=== PATIENT | male | born 1960 | race Caucasian/White ===

== ENCOUNTER 2017-11-21 03:48 | Inpatient (IN) | payer MEDICARE ==
[2017-11-21] VITALS (7 sets, daily range): BP systolic 146–196; BP diastolic 76–99
[~2017-11-21] VITALS: Ht 162.6 cm; Wt 61.7 kg
[~2017-11-21 03:48] MED LIST: AMLODIPINE BESY10 MG PO; ASPIRIN325 PO; ATORVASTATIN CA80 MG PO; LOPRESSOR100 M1 PO; PRILOSEC 20 MG20 MG PO; TOPROL XL100 MG PO
[2017-11-21] MEDS ORDERED: LISINOPRIL10 MG PO (04:18)
[2017-11-21] MEDS ORDERED: NORVASC2.5 M1 PO (04:19)
[2017-11-21 04:41] LABS: ABSOLUTE LYMPHOCYTES 0.7 thou/uL (0.8-5.3); ABSOLUTE MONOCYTES 0.4 thou/uL (0.0-1.2); ABSOLUTE NEUTROPHILS 1.6 thou/uL (1.6-8.1); BASOPHILS 0.9 %; EOSINOPHILS 1.4 %; HEMATOCRIT 38.3 % (42.0-52.0); HEMOGLOBIN 13.6 gm/dL (14.0-18.0); LYMPHOCYTES 24.5 %; MCHC 35.5 g/dL (28.0-37.0); MCV 90.1 fL (80.0-100.0); MONOCYTES 13.2 %; MPV 7.5 fl. (7.2-11.1); NUCLEATED RBCS 0 /100WBC; PLATELET COUNT* 175 thou/uL (150-400); RBC 4.26 mil/uL (4.50-6.00); RDW-CV 14.1 % (10.5-14.5); WBC 2.7 thou/uL (4.0-11.0)
[2017-11-21 04:46] LABS: ANION GAP 7 mmol/L (7-16); BUN 4 mg/dL (7-18); CALCIUM 8.2 mg/dL (8.5-10.1); CHLORIDE 84 mmol/L (98-107); CO2 26 mmol/L (21-32); CREATININE 0.8 mg/dL (0.6-1.3); GLUCOSE 79 mg/dL (70-99); POTASSIUM 5.4 mmol/L (3.5-5.1)
[2017-11-21 04:52] LABS: SODIUM 117 mmol/L (136-145)
[2017-11-21 04:53] LABS: ALBUMIN 3.6 g/dL (3.4-5.0); ALKALINE PHOSPHATASE 66 U/L (46-116); SGOT 236 U/L (15-37); SGPT 55 U/L (30-65); TOTAL BILIRUBIN 0.5 mg/dL (<0.1-1.0); TOTAL PROTEIN 7.8 g/dL (6.4-8.2); TROPONIN-I LEVEL <0.06 ng/mL (<0.06)
[2017-11-21 05:30] LABS: URINE BILIRUBIN NEGATIVE (Negative); URINE BLOOD TRACE (Negative); URINE CLARITY CLEAR; URINE COLOR YELLOW; URINE GLUCOSE-RANDOM NEGATIVE (Negative); URINE KETONES NEGATIVE (Negative); URINE LEUKOCYTES-REFLEX NEGATIVE (Negative); URINE NITRITE-REFLEX NEGATIVE (Negative); URINE PROTEIN 2+ (Negative); URINE SPECIFIC GRAVITY <= 1.005 (1.005-1.030); URINE UROBILINOGEN 0.2 E.U./dl (0.2-1.0)
[2017-11-21 05:37] LABS: AMP/METHAMP Negative (Negative); BARBITURATES Negative (Negative); BENZODIAZEPINES Negative (Negative); COCAINE Negative (Negative); METHADONE Negative (Negative); OPIATES Negative (Negative); PCP Negative (Negative); THC Negative (Negative)
[2017-11-21 06:09] LABS: CASTS None Seen /LPF (None Seen); SQUAMOUS NONE SEEN /LPF (0-3); URINE RBC None Seen /HPF (0-2); URINE WBC-REFLEX None Seen /HPF (0-5)
[2017-11-21 06:10] LABS: BACTERIA-REFLEX None Seen /HPF (None Seen); CRYSTALS None Seen /LPF (None Seen)
[2017-11-21 07:13] LABS: CALCIUM 7.8 mg/dL (8.5-10.1); CREATININE 0.9 mg/dL (0.6-1.3); POTASSIUM 5.7 mmol/L (3.5-5.1)
[2017-11-21 07:23] LABS: INR 1.1; PROTIME 10.4 Seconds (9.20-11.50)
[2017-11-21 07:27] LABS: AMMONIA < 10 umol/L (11-32); MAGNESIUM 1.1 mg/dL (1.8-2.4); PHOSPHORUS* 3.3 mg/dL (2.5-4.9)
--- NOTE | 2017-11-21 09:41 | EKG ---
[place] [address] ELECTROCARDIOGRAM REPORT Name: BAILEY RAZA Room: [address] IN .R.#: [id number] Admission: 11/21/17 Attend Phys: Jacqueline Loyd MD Discharge: Date of : 62 Report #: [id number] THIS REPORT FOR: //name// [facility] ED Test Date: 2017-11-21 Test Time: 03:55:53 Pat Name: BAILEY RAZA Department: Room: Gender: Clerk Funeral Detail: : 1960 Requested By: Nette Medina Order Number: [id number] MD: Sarabjit Alexander Measurements Intervals [place] Rate: 78 P: 80 FL: 195 QRS: 54 QRSD: 73 T: 69 QT: 388 QTc: 442 Interpretive Statements Sinus rhythm Consider left atrial enlargement Minimal ST elevation, anterior leads Baseline wander in lead(s) V6 Compared to ECG 03/02/2016 18:57:51 ST (T wave) deviation now present Left ventricular hypertrophy no longer present Electronically Signed On 11-21-2017 9:41:36 CDT by Sarabjit Alexander [email or web address] <ELECTRONICALLY SIGNED> By: Sarabjit Alexander MD, FACC 11/21/17 0941 0355 0355 Sarabjit Alexander MD, FAC /EPI
[2017-11-21 10:52] LABS: CALCIUM 7.8 mg/dL (8.5-10.1); POTASSIUM 4.2 mmol/L (3.5-5.1)
[2017-11-21 15:04] LABS: POTASSIUM 4.6 mmol/L (3.5-5.1)
[2017-11-21 18:44] LABS: CALCIUM 8.5 mg/dL (8.5-10.1); POTASSIUM 4.2 mmol/L (3.5-5.1)
[2017-11-22] VITALS: BP 185/98
[2017-11-22 04:00] VITALS: BP 171/89
[2017-11-22 04:52] LABS: HEMATOCRIT 40.2 % (42.0-52.0); HEMOGLOBIN 13.8 gm/dL (14.0-18.0); MCH 31.6 pg (26.0-34.0); MCHC 34.4 g/dL (28.0-37.0); MCV 92.1 fL (80.0-100.0); MPV 8.1 fl. (7.2-11.1); RBC 4.37 mil/uL (4.50-6.00); RDW-CV 14.1 % (10.5-14.5); WBC 2.8 thou/uL (4.0-11.0)
[2017-11-22 05:26] LABS: ALBUMIN 3.7 g/dL (3.4-5.0); CREATININE 0.9 mg/dL (0.6-1.3); MAGNESIUM 1.2 mg/dL (1.8-2.4); POTASSIUM 3.7 mmol/L (3.5-5.1); TOTAL BILIRUBIN 0.6 mg/dL (<0.1-1.0); TOTAL PROTEIN 8.1 g/dL (6.4-8.2)
[2017-11-22 08:47] VITALS: BP 160/90
[2017-11-22 12:15] VITALS: BP 178/77
[2017-11-22 16:00] VITALS: BP 199/95
[2017-11-22 17:10] VITALS: BP 170/88
[2017-11-23] VITALS (7 sets, daily range): BP systolic 147–181; BP diastolic 78–111
[2017-11-23 05:44] LABS: CALCIUM 8.5 mg/dL (8.5-10.1); PHOSPHORUS* 2.9 mg/dL (2.5-4.9); POTASSIUM 3.5 mmol/L (3.5-5.1)
[2017-11-24] VITALS: BP 182/106
[2017-11-24 04:00] VITALS: BP 135/78
[2017-11-24 05:27] LABS: CALCIUM 8.6 mg/dL (8.5-10.1); POTASSIUM 3.7 mmol/L (3.5-5.1)
[2017-11-24 08:00] VITALS: BP 179/98
[2017-11-24 12:12] VITALS: BP 176/86
[2017-11-24 15:48] VITALS: BP 163/84
[2017-11-24 19:42] VITALS: BP 171/81
[2017-11-24] MEDS ORDERED: PRENATAL PO (22:58)
[2017-11-24] MEDS ORDERED: LIDOPATCH1 EACH TOP (22:58)
[2017-11-24] MEDS ORDERED: LISINOPRIL20 MG PO (22:58)
[2017-11-24] MEDS ORDERED: NORVASC10 MG PO (22:58)
[2017-11-24] MEDS ORDERED: TRAMADOL 50 MG50 MG PO (22:58)
[2017-11-24] MEDS ORDERED: PREDNISONE 20 M20 MG PO (22:58)
[2017-11-24] MEDS ORDERED: VITAMIN B-1100 M1 PO (22:58)
[2017-11-25] VITALS (8 sets, daily range): BP systolic 125–187; BP diastolic 63–98
[2017-11-25 05:32] LABS: CALCIUM 8.6 mg/dL (8.5-10.1); CREATININE 0.9 mg/dL (0.6-1.3); POTASSIUM 3.9 mmol/L (3.5-5.1)
[2017-11-25] MEDS ORDERED: SODIUM BICARBO650 M3 PO (15:33)
[2017-11-26] VITALS: BP 186/95
[2017-11-26 04:00] VITALS: BP 190/94
[2017-11-26 04:58] LABS: CALCIUM 8.4 mg/dL (8.5-10.1); CREATININE 0.9 mg/dL (0.6-1.3); POTASSIUM 3.7 mmol/L (3.5-5.1)
[2017-11-26 07:30] VITALS: BP 144/90
[2017-11-26 11:35] VITALS: BP 162/85
== END 2017-11-26 13:00 | DRG 897 ==
LOC: M.ERS 03:48 → M.TBA-ER 05:08 → M.2W 05:08
PROVIDERS: Personal Emergency Response Attendant; ADMIT Internal Medicine
DX: F10.129 Alcohol abuse with intoxication, unspecified (principal); E87.1 Hypo-osmolality and hyponatremia; E86.0 Dehydration; E78.00 Pure hypercholesterolemia, unspecified; I10 Essential (primary) hypertension; S20.212A Contusion of left front wall of thorax, initial encounter; F17.210 Nicotine dependence, cigarettes, uncomplicated; K21.9 Gastro-esophageal reflux disease without esophagitis; Z88.8 Allergy status to other drugs, medicaments and biological substances; X58.XXXA Exposure to other specified factors, initial encounter; Y93.89 Activity, other specified; Y92.89 Other specified places as the place of occurrence of the external cause; Y99.8 Other external cause status; Z82.49 Family history of ischemic heart disease and other diseases of the circulatory system; Z86.73 Personal history of transient ischemic attack (TIA), and cerebral infarction without residual deficits; Z79.899 Other long term (current) drug therapy

== ENCOUNTER 2018-03-27 19:32 | Inpatient (IN) | payer MEDICARE ==
[~2018-03-27] VITALS: Ht 162.6 cm; Wt 59.9 kg
[~2018-03-27 19:32] MED LIST changes: +LIDOPATCH1 EACH TOP; +LISINOPRIL10 MG PO; +LISINOPRIL20 MG PO; +NORVASC10 MG PO; +NORVASC2.5 M1 PO; +PREDNISONE 20 M20 MG PO; +PRENATAL PO; +SODIUM BICARBO650 M3 PO; +TRAMADOL 50 MG50 MG PO; +VITAMIN B-1100 M1 PO
[2018-03-27 19:34] VITALS: BP 146/87
[2018-03-27] MEDS ORDERED: PRINIVIL10 MG PO (19:53)
[2018-03-27 20:10] LABS: APTT 35.2 Seconds (25.0-31.3); INR 1.1; PROTIME 10.8 Seconds (9.20-11.50)
[2018-03-27 20:22] LABS: HEMATOCRIT 37.4 % (42.0-52.0); HEMOGLOBIN 13.7 gm/dL (14.0-18.0); MCH 31.9 pg (26.0-34.0); MCHC 36.6 g/dL (28.0-37.0); MCV 87.1 fL (80.0-100.0); MPV 7.6 fl. (7.2-11.1); NUCLEATED RBCS 0 /100WBC; PLATELET COUNT* 161 thou/uL (150-400); RBC 4.29 mil/uL (4.50-6.00); RDW-CV 13.7 % (10.5-14.5)
[2018-03-27 20:29] LABS: ANION GAP 9 mmol/L (7-16); BUN 10 mg/dL (7-18); CHLORIDE 71 mmol/L (98-107); CO2 23 mmol/L (21-32); CREATININE 0.8 mg/dL (0.6-1.3); GLUCOSE 94 mg/dL (70-99); POTASSIUM 3.8 mmol/L (3.5-5.1)
[2018-03-27 20:31] LABS: SODIUM 103 mmol/L (136-145)
[2018-03-27 20:36] LABS: ALBUMIN 3.6 g/dL (3.4-5.0); ALKALINE PHOSPHATASE 69 U/L (46-116); SGOT 213 U/L (15-37); SGPT 65 U/L (30-65); TOTAL BILIRUBIN 0.7 mg/dL (<0.1-1.0); TOTAL PROTEIN 7.5 g/dL (6.4-8.2); TROPONIN-I LEVEL <0.06 ng/mL (<0.06)
[2018-03-27 20:43] LABS: URINE BLOOD 1+ (Negative); URINE CLARITY CLEAR; URINE COLOR YELLOW; URINE GLUCOSE-RANDOM NEGATIVE (Negative); URINE KETONES 1+ (Negative); URINE LEUKOCYTES-REFLEX NEGATIVE (Negative); URINE NITRITE-REFLEX NEGATIVE (Negative); URINE PROTEIN 3+ (Negative); URINE SPECIFIC GRAVITY >= 1.030 (1.005-1.030); URINE UROBILINOGEN 0.2 E.U./dl (0.2-1.0)
[2018-03-27 20:45] LABS: ICTOTEST (BILI CONFIRMATORY) Negative (Negative); URINE BILIRUBIN 1+ (Negative)
[2018-03-27 20:51] LABS: ABSOLUTE LYMPHOCYTES 0.5 thou/uL (0.8-5.3); ABSOLUTE MONOCYTES 0.3 thou/uL (0.0-1.2); ABSOLUTE NEUTROPHILS 4.3 thou/uL (1.6-8.1); ATYPICAL LYMPHS 3 %; PLATELET ESTIMATE ADEQUATE
[2018-03-27 20:59] LABS: SQUAMOUS 0-3 Few /LPF (0-3)
[2018-03-27 21:00] LABS: BACTERIA-REFLEX None Seen /HPF (None Seen); CASTS None Seen /LPF (None Seen); CRYSTALS None Seen /LPF (None Seen); MUCUS 0-3 Light strn/LPF (None Seen); URINE RBC None Seen /HPF (0-2); URINE WBC-REFLEX None Seen /HPF (0-5)
[2018-03-27 21:38] VITALS: BP 134/88
[2018-03-27 22:00] VITALS: BP 123/83
[2018-03-27 23:13] LABS: AMP/METHAMP Negative (Negative); BARBITURATES Negative (Negative); BENZODIAZEPINES Negative (Negative); COCAINE Negative (Negative); METHADONE Negative (Negative); OPIATES Negative (Negative); PCP Negative (Negative); THC Negative (Negative)
[2018-03-28 04:00] VITALS: BP 125/69
[2018-03-28 05:15] LABS: CALCIUM 7.4 mg/dL (8.5-10.1); MAGNESIUM 1.4 mg/dL (1.8-2.4); PHOSPHORUS* 2.2 mg/dL (2.5-4.9)
[2018-03-28 05:44] LABS: AMMONIA < 10 umol/L (11-32)
[2018-03-28 09:55] LABS: CALCIUM 7.7 mg/dL (8.5-10.1); CREATININE 0.7 mg/dL (0.6-1.3); MAGNESIUM 1.5 mg/dL (1.8-2.4); PHOSPHORUS* 2.3 mg/dL (2.5-4.9); POTASSIUM 3.6 mmol/L (3.5-5.1)
[2018-03-28 10:28] VITALS: BP 150/78
[2018-03-28 10:33] LABS: ABSOLUTE LYMPHOCYTES 0.5 thou/uL (0.8-5.3); ABSOLUTE MONOCYTES 0.5 thou/uL (0.0-1.2); ABSOLUTE NEUTROPHILS 3.9 thou/uL (1.6-8.1); BASOPHILS 0.2 %; EOSINOPHILS 0.2 %; HEMATOCRIT 37.1 % (42.0-52.0); HEMOGLOBIN 13.5 gm/dL (14.0-18.0); LYMPHOCYTES 10.3 %; MCH 32.4 pg (26.0-34.0); MCHC 36.4 g/dL (28.0-37.0); MONOCYTES 10.2 %; MPV 8.3 fl. (7.2-11.1); NUCLEATED RBCS 0 /100WBC; PLATELET COUNT* 128 thou/uL (150-400); POLYS 79.1 %; RBC 4.16 mil/uL (4.50-6.00); RDW-CV 13.5 % (10.5-14.5); WBC 4.9 thou/uL (4.0-11.0)
[2018-03-28 10:52] LABS: CALCIUM 8.1 mg/dL (8.5-10.1); CREATININE 0.8 mg/dL (0.6-1.3); POTASSIUM 3.6 mmol/L (3.5-5.1)
[2018-03-28 14:00] VITALS: BP 152/89
[2018-03-28 14:13] LABS: CREATININE 0.7 mg/dL (0.6-1.3); POTASSIUM 3.4 mmol/L (3.5-5.1)
[2018-03-28 14:16] LABS: MAGNESIUM 1.4 mg/dL (1.8-2.4); PHOSPHORUS* 2.2 mg/dL (2.5-4.9)
--- NOTE | 2018-03-28 15:00 | EKG ---
[place] [address] ELECTROCARDIOGRAM REPORT Name: BAILEY RAZA Room: [address] ADM IN M.R.#: [id number] Admission: 03/27/18 Attend Phys: Nathan Newman, Discharge: Date of : 62 Report #: [id number] THIS REPORT FOR: //name// [facility] ED Test Date: 2018-03-27 Test Time: 19:48:02 Pat Name: BAILEY RAZA Department: Room: [facility] Gender: M It Support Specialist: UNKNOWN : 1960 Requested By: Shay Daniels Order Number: [id number] MD: Sarabjit Alexander Measurements Intervals [place] Rate: 83 P: 38 GA: 196 QRS: 65 QRSD: 91 T: 84 QT: 408 QTc: 480 Interpretive Statements Sinus rhythm Nonspecific T abnormalities, lateral leads ST elevation, consider early repolarization Borderline prolonged QT interval Compared to ECG 11/21/2017 03:55:53 T-wave abnormality now present ST (T wave) deviation still present Electronically Signed On 03-28-2018 15:00:08 CDT by Sarabjit Alexander [email or web address] <ELECTRONICALLY SIGNED> By: Sarabijt Alexander MD, FACC 03/28/181499 47 47 Sarabjit Alexander MD, FACC /EPI
[2018-03-28 18:00] VITALS: BP 142/76
[2018-03-28 19:00] LABS: CALCIUM 7.9 mg/dL (8.5-10.1); CREATININE 0.9 mg/dL (0.6-1.3); MAGNESIUM 1.3 mg/dL (1.8-2.4); PHOSPHORUS* 1.7 mg/dL (2.5-4.9); POTASSIUM 3.1 mmol/L (3.5-5.1)
[2018-03-28 20:00] VITALS: BP 117/71
[2018-03-28 22:00] VITALS: BP 118/57
[2018-03-28 22:30] LABS: CALCIUM 7.8 mg/dL (8.5-10.1); CREATININE 0.8 mg/dL (0.6-1.3); POTASSIUM 3.4 mmol/L (3.5-5.1)
[2018-03-29] VITALS (8 sets, daily range): BP systolic 113–152; BP diastolic 65–105
[2018-03-29 02:56] LABS: HEMATOCRIT 35.5 % (42.0-52.0); HEMOGLOBIN 12.8 gm/dL (14.0-18.0); MCH 31.9 pg (26.0-34.0); MCV 88.6 fL (80.0-100.0); MPV 7.7 fl. (7.2-11.1); RBC 4.01 mil/uL (4.50-6.00); RDW-CV 13.9 % (10.5-14.5); WBC 5.4 thou/uL (4.0-11.0)
[2018-03-29 03:31] LABS: ALBUMIN 3.2 g/dL (3.4-5.0); CALCIUM 7.7 mg/dL (8.5-10.1); CREATININE 0.8 mg/dL (0.6-1.3); MAGNESIUM 1.8 mg/dL (1.8-2.4); PHOSPHORUS* 3.4 mg/dL (2.5-4.9); POTASSIUM 3.4 mmol/L (3.5-5.1); TOTAL BILIRUBIN 0.5 mg/dL (<0.1-1.0); TOTAL PROTEIN 6.4 g/dL (6.4-8.2)
[2018-03-29 06:30] LABS: CALCIUM 7.9 mg/dL (8.5-10.1); CREATININE 0.9 mg/dL (0.6-1.3); POTASSIUM 3.4 mmol/L (3.5-5.1)
[2018-03-29 06:33] LABS: URIC ACID* 3.2 mg/dL (2.6-7.2)
--- NOTE | 2018-03-29 14:32 | CON ---
[address] [address] CONSULTATION Name: BAILEY RAZA Room: [address] IN M.R.#: [id number] Admission: 03/27/18 Attend Phys: Nathan Newman, Discharge: Date of : 62 Report #: [id number] THIS REPORT FOR: //name// CC: ABHIJIT physician/PCP Nathan Newman NEUROLOGY CONSULTATION HISTORY OF PRESENT ILLNESS: The patient is a 58-year-old male who was admitted to the hospital with a sodium of 103. The patient was admitted at approximately 08:15 p.m.; 14 hours later, the patient's sodium is 117. The patient was transferred to the Intensive Care Unit. He had been complaining of generalized weakness and had been falling. The patient states that he drinks quite a bit of liquids. I asked him if this was water, but I suspect this is beer. The patient also has a history of strokes and is aware of those. He also smokes cigarettes, but does not take aspirin. The patient is confused at this moment and unable to provide a significant history. PAST MEDICAL HISTORY: Stroke, hyperlipidemia, hypertension and gastroesophageal reflux. PAST SURGICAL HISTORY: Noncontributory. MEDICATIONS: Tramadol, lidocaine patch, thiamine, vitamin, amlodipine and prednisone. ALLERGIES: WARFARIN. VITAL SIGNS: Temperature is 36.6, pulse rate 100, respiratory rate 18, blood pressure 125/69 and bedside pulse oximetry 98% on 2 liters nasal cannula. LABORATORY DATA: Hematology: White blood cell count 4.9, hemoglobin 13.5, hematocrit 37.1, MCV 89 and platelet count 128,000. Coagulation: INR 1.1. Urinalysis; 3+ protein, 1+ ketones, 1+ blood and 1+ bilirubin. Chemistry: Sodium 117, potassium 3.6, chloride 82, carbon dioxide 26, BUN 6, creatinine 0.8 and glucose 98. Calcium 8.1, phosphorus 2.3, magnesium 1.5. AST 213, ALT 65 and alkaline phosphatase 69. Ammonia less than 10. Creatinine kinase 203. Albumin 3.6. Vitamin B12 at 477. Folate 14.1. TSH 1.213, free T4 1.5. Drug screen negative. IMAGING STUDIES: CT scan of the head demonstrates old right thalamic and left cerebellar lacunar infarct. Carotid Doppler [place] [address] CONSULTATION Name: BAILEY RAZA Room: [address] IN [facility]#: [id number] Admission: 03/27/18 Attend Phys: Nathan Newman, Discharge: Date of : 62 Report #: [id number] NEUROLOGICAL EXAMINATION: Cranial nerves 2-12 are grossly intact. Motor exam demonstrates symmetrical movement in all 4 extremities, with tone and bulk normal. Reflexes are trace throughout. Plantar responses are flexor. Coordination reveals intact [id number]. Gait is not tested. IMPRESSION: This patient may be confused. This is most likely from hyponatremia. Nephrology is now following the patient. Sodium levels must be corrected carefully, otherwise central pontine myelinolysis can develop. The patient has old strokes. He has already had a carotid ultrasound, which is unremarkable. I am going to order an echocardiogram, but I suspect this problem has already been worked up in the past. The patient has risk factors which include cigarette use, hypertension and hyperlipidemia. I would recommend aspirin [address] Vital will be following the patient as of Thursday. <ELECTRONICALLY SIGNED> By: Ann-Marie Bacon DO 03/29/18 1432 1351 [id number]-Marie Bacon DO /nt
--- NOTE | 2018-03-29 14:51 | 2DMMODE ---
[place] [address] 2 D/M-MODE ECHOCARDIOGRAM Name: BAILEY RAZA Room: [facility] ADM IN [facility]#: [id number] Admission: 03/27/18 Attend Phys: Nathan Schaffer Discharge: Date of : 62 Date of Service: 03/29/18 1451 Report #: [id number] THIS REPORT FOR: //name// APPROVED REPORT Study performed: 03/29/2018 09:38:57 EXAM: Comprehensive 2D, Doppler, and color-flow Echocardiogram Patient Location: In-Patient Room #: [facility] Status: routine BSA: 1.66 HR: 91 bpm BP: 133/84 mmHg Rhythm: NSR Other Information Study Quality: Good Indications CVA/TIA hyponatremia, ETOH, weakness Echo Enhancing Agent Indication: Rule out Shunt Agent(s) / Amount(s) Used: Agitated Saline 10 cc 2D Dimensions IVSd: 9.33 (7-11mm) LVOT Diam: 22.11 (18-24mm) LVDd: 41.74 mm PWd: 8.35 (7-11mm) Ascending Ao: 28.61 (22-36mm) LVDs: 26.30 (25-40mm) Aortic Root: 32.38 mm Volumes Left Atrial Volume (Systole) LA ESV Index: 23.90 mL/m2 Aortic Valve AoV Peak Gallito.: 1.16 m/s AO Peak Gr.: 5.39 mmHg LVOT Max P.71 mmHg AO Mean Gr.: 3.34 mmHg LVOT Mean P.12 mmHg LVOT Max V: 1.09 m/s AO V2 VTI: 19.34 cm LVOT Mean V: 0.66 m/s SINDY (VTI): 3.20 cm2 LVOT V1 VTI: 16.12 [place] [address] 2 D/M-MODE ECHOCARDIOGRAM Name: BAILEY RAZA Room: [address] IN .R.#: [id number] Admission: 03/27/18 Attend Phys: Nathan Schaffer Discharge: Date of : 62 Date of Service: 03/29/18 1451 Report #: [id number] Mitral Valve E/A Ratio: 0.87 MV Decel. Time: 174.04 ms MV E Max Gallito.: 0.73 m/s MV PHT: 50.47 ms MVA (PHT): 4.36 cm2 TDI E/Lateral E': 6.64 E/Medial E': 8.11 Medial E' Gallito.: 0.09 m/s Lateral E' Gallito.: 0.11 m/s Pulmonary Valve PV Peak Gallito.: 1.14 m/s PV Peak Gr.: 5.17 mmHg Left Ventricle The left ventricle is normal size. There is normal LV segmental wall motion. There is normal left ventricular wall thickness. Left ventricular systolic function is normal. The left ventricular ejection fraction is within the normal range. LVEF is 65-70%. Grade I - abnormal relaxation pattern. Right Ventricle The right ventricle is normal size. The right ventricular systolic function is normal. Atria The left atrium size is normal. Interatrial septum is intact without evidence of ASD or PFO. The right atrium size is normal. Aortic Valve The aortic valve is normal in structure. No aortic regurgitation is present. There is no aortic valvular stenosis. Mitral Valve The mitral valve is normal in structure. There is no mitral valve regurgitation noted. No evidence of mitral valve stenosis. Tricuspid Valve The tricuspid valve is normal in structure. Trace tricuspid regurgitation. Unable to assess PA pressure. Pulmonic Valve The pulmonary valve is normal in structure. There is [place] [address] 2 D/M-MODE ECHOCARDIOGRAM Name: BAILEY RAZA Room: [address] IN .R.#: [id number] Admission: 03/27/18 Attend Phys: Nathan Schaffer Discharge: Date of : 62 Date of Service: 03/29/18 1451 Report #: [id number] Great Vessels The aortic root is normal in size. IVC is normal in size and collapses >50% with inspiration. Pericardium There is no pericardial effusion. <Conclusion> The left ventricle is normal size. There is normal left ventricular wall thickness. Left ventricular systolic function is normal. The left ventricular ejection fraction is within the normal range. LVEF is 65-70%. Grade I - abnormal relaxation pattern. The right ventricle is normal size. The left atrium size is normal. The aortic valve is normal in structure. The mitral valve is normal in structure. The tricuspid valve is normal in structure. IVC is normal in size and collapses >50% with inspiration. There is no pericardial effusion. There is normal LV segmental wall motion. Interatrial septum is intact without evidence of ASD or PFO. <ELECTRONICALLY SIGNED> By: Jorge Holden MD, FACC 03/29/18 145 145 145 Jorge Holden MD, FACC /INF
[2018-03-29 22:53] LABS: CALCIUM 7.8 mg/dL (8.5-10.1); POTASSIUM 3.7 mmol/L (3.5-5.1)
[2018-03-30] VITALS: BP 156/83
[2018-03-30 01:42] LABS: HEMATOCRIT 35.3 % (42.0-52.0); HEMOGLOBIN 12.4 gm/dL (14.0-18.0); MCH 31.5 pg (26.0-34.0); MCHC 35.1 g/dL (28.0-37.0); NUCLEATED RBCS 0 /100WBC; PLATELET COUNT* 132 thou/uL (150-400); RBC 3.93 mil/uL (4.50-6.00); RDW-CV 13.8 % (10.5-14.5)
[2018-03-30 01:54] LABS: CALCIUM 7.9 mg/dL (8.5-10.1); CREATININE 0.8 mg/dL (0.6-1.3); POTASSIUM 3.8 mmol/L (3.5-5.1); TOTAL BILIRUBIN 0.4 mg/dL (<0.1-1.0); TOTAL PROTEIN 6.9 g/dL (6.4-8.2)
[2018-03-30 04:01] VITALS: BP 163/85
[2018-03-30 06:12] LABS: ABSOLUTE LYMPHOCYTES 0.2 thou/uL (0.8-5.3); ABSOLUTE MONOCYTES 0.2 thou/uL (0.0-1.2); ABSOLUTE NEUTROPHILS 6.6 thou/uL (1.6-8.1); PLATELET ESTIMATE DECREASED
[2018-03-30 06:13] LABS: ANISOCYTOSIS 1+; POIKILOCYTOSIS 1+
[2018-03-30 08:00] VITALS: BP 157/90
[2018-03-30 10:30] VITALS: BP 149/85
[2018-03-30 11:05] LABS: MAGNESIUM 1.3 mg/dL (1.8-2.4)
[2018-03-30 17:05] VITALS: BP 140/73
[2018-03-30 20:00] VITALS: BP 167/79
[2018-03-31] VITALS: BP 174/92
[2018-03-31 04:00] VITALS: BP 158/93
[2018-03-31 05:10] LABS: ABSOLUTE MONOCYTES 0.8 thou/uL (0.0-1.2); ABSOLUTE NEUTROPHILS 7.4 thou/uL (1.6-8.1); BASOPHILS 0.2 %; EOSINOPHILS 0.1 %; HEMATOCRIT 35.8 % (42.0-52.0); HEMOGLOBIN 12.6 gm/dL (14.0-18.0); LYMPHOCYTES 10.9 %; MCH 31.6 pg (26.0-34.0); MCHC 35.3 g/dL (28.0-37.0); MCV 89.5 fL (80.0-100.0); MONOCYTES 8.4 %; MPV 8.2 fl. (7.2-11.1); NUCLEATED RBCS 0 /100WBC; PLATELET COUNT* 160 thou/uL (150-400); POLYS 80.4 %; WBC 9.3 thou/uL (4.0-11.0)
[2018-03-31 05:46] LABS: ALBUMIN 3.1 g/dL (3.4-5.0); CALCIUM 8.4 mg/dL (8.5-10.1); CREATININE 0.8 mg/dL (0.6-1.3); POTASSIUM 3.2 mmol/L (3.5-5.1); TOTAL BILIRUBIN 0.5 mg/dL (<0.1-1.0); TOTAL PROTEIN 7.1 g/dL (6.4-8.2)
[2018-03-31 08:00] VITALS: BP 177/94
[2018-03-31 12:00] VITALS: BP 145/79
[2018-03-31 15:20] LABS: POTASSIUM 4.3 mmol/L (3.5-5.1)
[2018-03-31 16:00] VITALS: BP 136/72; BP 145/79
[2018-03-31 20:54] VITALS: BP 147/78
[2018-04-01] VITALS: BP 172/99
[2018-04-01 04:00] VITALS: BP 173/83
[2018-04-01 04:48] LABS: ABSOLUTE LYMPHOCYTES 0.9 thou/uL (0.8-5.3); ABSOLUTE MONOCYTES 0.8 thou/uL (0.0-1.2); ABSOLUTE NEUTROPHILS 6.7 thou/uL (1.6-8.1); BASOPHILS 0.1 %; CALCIUM 8.1 mg/dL (8.5-10.1); CREATININE 0.8 mg/dL (0.6-1.3); EOSINOPHILS 0.1 %; HEMATOCRIT 36.9 % (42.0-52.0); HEMOGLOBIN 13.1 gm/dL (14.0-18.0); MCHC 35.4 g/dL (28.0-37.0); MCV 90.2 fL (80.0-100.0); MONOCYTES 9.9 %; MPV 7.8 fl. (7.2-11.1); NUCLEATED RBCS 0 /100WBC; PLATELET COUNT* 217 thou/uL (150-400); POLYS 78.9 %; POTASSIUM 3.7 mmol/L (3.5-5.1); RBC 4.09 mil/uL (4.50-6.00); RDW-CV 13.8 % (10.5-14.5); WBC 8.5 thou/uL (4.0-11.0)
[2018-04-01 08:00] VITALS: BP 183/88
[2018-04-01 11:36] VITALS: BP 134/69
[2018-04-01 15:37] VITALS: BP 140/74
--- NOTE | 2018-04-01 18:23 | CON ---
[address] [address] CONSULTATION Name: BAILEY RAZA Room: [address] IN M.R.#: [id number] Admission: 03/27/18 Attend Phys: Nathan Newman, Discharge: Date of : 62 Report #: [id number] THIS REPORT FOR: //name// CC: ABHIJIT physician/PCP Nathan Newman DATE OF SERVICE: 03/29/2018 CONSULTING PHYSICIAN: Dr. Singh. REASON FOR NEPHROLOGY CONSULTATION: Severe hyponatremia. CHIEF COMPLAINT: Falling, multiple falls and weakness. HISTORY OF PRESENT ILLNESS: This is a 58-year-old male with past medical history of alcohol dependence, history of hyponatremia in the past, the patient's sodium was 129-130, who came in with generalized weakness and with history of multiple falls. When he came, he was having some nausea and he was found to have sodium of 103 and he was given some IV fluids at that point. His sodium improved to 113 from 103 in 12 hours and Nephrology was consulted at that point. The patient is in the ICU, currently on aspiration precautions and his swallow study will be checked. He is currently getting banana bag and Ativan as needed. His fluids were stopped yesterday after the rapid improvement in the sodium level and his sodium is 118 this morning. The patient has a very slow speech, seems to be oriented, but his review of systems is limited. He denies taking any NSAIDs. He does take lisinopril at home and for some reason he is also on sodium bicarbonate. He is also on antibiotics, on Levaquin and Zosyn, it seems like it is because of possible aspiration. ALLERGIES: WARFARIN. REVIEW OF SYSTEMS: As mentioned in history of present illness, otherwise is limited. PAST MEDICAL AND SURGICAL HISTORY: Includes prior CVA x 3, hypercholesterolemia and alcohol dependence, does smoke 2 packs a day, hypertension, GERD. FAMILY HISTORY: Heart disease. SOCIAL HISTORY: He drinks about 4-5 beers a day, eats about 2 meals a day, smokes about 2 packs of cigarette a day. No recreational drug use that he reports of. HOME MEDICATIONS: Include tramadol, lidocaine, thiamine, vitamin, amlodipine, prednisone, lisinopril, sodium bicarbonate, omeprazole, [place] [address] CONSULTATION Name: BAILEY RAZA Room: [address] IN [facility]#: [id number] Admission: 03/27/18 Attend Phys: Nathan Newman, Discharge: Date of : 62 Report #: [id number] PHYSICAL EXAMINATION: VITAL SIGNS: Blood pressure is 126/74, respiratory rate is 24, pulse rate is 109, temperature is 36.8, and pulse ox is 94% on 2 liter nasal cannula. GENERAL: He is awake. He is alert and he is very slow in responding. He is oriented x 3. HEAD, EYES, EARS, NOSE AND THROAT: Mucous membranes are moist. NECK: There is no JVD. CHEST: Bilateral wheezing and coarse breath sounds. CARDIOVASCULAR: S1, S2 normal. No murmurs. ABDOMEN: Mildly distended, but otherwise it is soft, nontender. Bowel sounds are diminished. EXTREMITIES: There is no lower extremities edema, symmetrical lower extremities. NEUROLOGICAL FUNCTION: The patient's speech is very slow. I did not check his gait. He seems to be oriented x 3. PSYCHIATRIC: Seems to be depressed. LABORATORY DATA: Hemoglobin is 12.8. Sodium was 118 this morning, potassium was 3.4, chloride 87, BUN 5, creatinine 0.9 and magnesium was 1.9. His uric acid was 3.2 and his urine sodium was 27. Urine osmolarity is pending. Other labs were reviewed. IMAGING: Chest x-ray ____ and CT were reviewed. ASSESSMENT: 1. Kdfvc-th-kyzaoha hyponatremia, sodium was 103 when he came in. 2. Severe hypokalemia, likely because of poor p.o. intake, potassium is 3.4 today. 3. Severe hypomagnesemia, magnesium is 1.9 now after replacement. 4. Weakness and falls, likely encephalopathy, Neurology is following. 5. Aspiration pneumonia, the patient is getting treatment for that with Levaquin and Zosyn as per primary team. 6. History of hypertension, blood pressure currently controlled. 7. Acute respiratory failure, hypoxia, likely because of aspiration pneumonia. PLAN: 1. The patient's sodium has improved to 118. Urine osmolarity is still pending. This hyponatremia is because of beer potomania because his p.o. intake is very poor and he drinks a lot of alcohol. I will fluid restrict him to 1 liter of fluid a day, replace potassium cautiously because it can cause elevation in sodium level, keep checking sodium every 4 hours, add salt tablets 2 grams t.i.d., which if he is not able to swallow, he will need NG tube. 2. Strict I's and O's. 3. Replace potassium. 4. We will be able to stop his bicarbonate tablets as we are going to start him on sodium chloride tablets and his bicarbonate [place] [address] CONSULTATION Name: BAILEY RAZA Room: [address]#: [id number] Admission: 03/27/18 Attend Phys: Nathan Newman, Discharge: Date of : 62 Report #: [id number] 5. I have also stopped his lisinopril because that can also contribute to hyponatremia. I thank you for this consultation. I have discussed the plan with the patient and the patient's nurse and we will continue to follow along with you. <ELECTRONICALLY SIGNED> By: Elvi Becerril MD 04/01/18 1823 1021 [id number] Becerril MD /nt
[2018-04-01 20:58] VITALS: BP 154/71
[2018-04-02] VITALS: BP 162/87
[2018-04-02 04:00] VITALS: BP 158/82
[2018-04-02 08:00] VITALS: BP 162/84
[2018-04-02] MEDS ORDERED: ASPIR 8181 M1 PO (11:02)
[2018-04-02] MEDS ORDERED: PHOS-NAK PACKE1 EACH PO (11:05)
[2018-04-02] MEDS ORDERED: SODIUM CHLORIDE1 G2 PO (11:07)
[2018-04-02] MEDS ORDERED: MAGOX 400400 MG PO (11:08)
[2018-04-02] MEDS ORDERED: AUGMENTIN 875-1 EACH PO (11:08)
[2018-04-02] MEDS ORDERED: IPRAT-ALBUT 0.5-3 ML INH (11:13)
[2018-04-02 11:18] VITALS: BP 158/82
== END 2018-04-02 13:31 | DRG 177 ==
LOC: M.ERS 19:32 → M.ICU 20:52 → M.TBA-ER 20:52 → M.2W 21:10 → M.ICU 03-28 09:54 → M.2W 03-30 10:31
PROVIDERS: Family Medicine; Internal Medicine; Internal Medicine Nephrology; ADMIT Family Medicine
DX: J69.0 Pneumonitis due to inhalation of food and vomit (principal); G92 Toxic encephalopathy; J96.01 Acute respiratory failure with hypoxia; E87.1 Hypo-osmolality and hyponatremia; E78.00 Pure hypercholesterolemia, unspecified; I10 Essential (primary) hypertension; K21.9 Gastro-esophageal reflux disease without esophagitis; Z77.22 Contact with and (suspected) exposure to environmental tobacco smoke (acute) (chronic); E78.5 Hyperlipidemia, unspecified; E87.6 Hypokalemia; E83.42 Hypomagnesemia; E83.51 Hypocalcemia; E83.39 Other disorders of phosphorus metabolism; J44.9 Chronic obstructive pulmonary disease, unspecified; I65.21 Occlusion and stenosis of right carotid artery; F10.20 Alcohol dependence, uncomplicated; Z28.21 Immunization not carried out because of patient refusal; Z86.73 Personal history of transient ischemic attack (TIA), and cerebral infarction without residual deficits; Z88.8 Allergy status to other drugs, medicaments and biological substances; Z82.49 Family history of ischemic heart disease and other diseases of the circulatory system

== ENCOUNTER 2019-04-29 17:00 | Inpatient (IN) | payer OTHER, MEDICAID ==
[~2019-04-29] VITALS: Ht 162.6 cm; Wt 60.8 kg
[~2019-04-29 17:00] MED LIST changes: +ASPIR 8181 M1 PO; +AUGMENTIN 875-1 EACH PO; +IPRAT-ALBUT 0.5-3 ML INH; +MAGOX 400400 MG PO; +PHOS-NAK PACKE1 EACH PO; +PRINIVIL10 MG PO; +SODIUM CHLORIDE1 G2 PO
[2019-04-29 17:09] VITALS: BP 140/114
[2019-04-29 18:12] LABS: CALCIUM 8.3 mg/dL (8.5-10.1); CREATININE 0.8 mg/dL (0.6-1.3); POTASSIUM 3.5 mmol/L (3.5-5.1)
[2019-04-29 18:13] LABS: APTT 32.7 Seconds (25.0-31.3); INR 1.1; PROTIME 11.3 Seconds (9.20-11.50)
[2019-04-29 18:25] LABS: ALBUMIN 3.7 g/dL (3.4-5.0)
[2019-04-29 18:28] LABS: MAGNESIUM 0.9 mg/dL (1.8-2.4)
[2019-04-29 18:38] LABS: ABSOLUTE MONOCYTES 0.9 thou/uL (0.0-1.2); ABSOLUTE NEUTROPHILS 4.5 thou/uL (1.6-8.1); BASOPHILS 0.5 %; EOSINOPHILS 0.2 %; HEMATOCRIT 35.9 % (42.0-52.0); HEMOGLOBIN 13.3 gm/dL (14.0-18.0); LYMPHOCYTES 15.5 %; MCH 31.7 pg (26.0-34.0); MCHC 37.1 g/dL (28.0-37.0); MCV 85.6 fL (80.0-100.0); MONOCYTES 13.6 %; MPV 8.3 fl. (7.2-11.1); NUCLEATED RBCS 0 /100WBC; PLATELET COUNT* 90 thou/uL (150-400); POLYS 70.2 %; RBC 4.19 mil/uL (4.50-6.00); RDW-CV 14.1 % (10.5-14.5); WBC 6.4 thou/uL (4.0-11.0)
[2019-04-29 18:39] VITALS: BP 110/64
[2019-04-29 18:42] LABS: INFLUENZA A ANTIGEN Negative (Negative); INFLUENZA B ANTIGEN Negative (Negative)
[2019-04-29 20:00] VITALS: BP 117/70
[2019-04-29 23:54] LABS: PO2 86.7 mmHg (75.0-100.0); pH 7.437 (7.340-7.450)
[2019-04-30] VITALS (7 sets, daily range): BP systolic 111–166; BP diastolic 63–80
[2019-04-30] LABS: CALCIUM 8.4 mg/dL (8.5-10.1); CREATININE 0.7 mg/dL (0.6-1.3); POTASSIUM 3.6 mmol/L (3.5-5.1)
[2019-04-30 05:14] LABS: CREATININE 0.7 mg/dL (0.6-1.3); POTASSIUM 3.4 mmol/L (3.5-5.1)
--- NOTE | 2019-04-30 06:57 | NUR ---
ASSUMED PATIENT CARE AT 1900. ASSEMENT COMPLETED CHARTED. VSS. PATIENT IS SR/1D ON MONITOR. PATIENT A/OX4 AT BEGINNING OF SHIFT. AT 2300, PATIENT FOUND TO BE UNRESPONSIVE, PATIENT MILDLY RESPOSIVE TO STERNAL RUB. VSS. BS WAS 91. RT PAGED, STAT ABG ORDERED, BREATHING TX COMPLETED. DOCTOR DONNA NOTIFIED OF CHANGES, NEW ORDERS RECEIVED. PATIENT CONTINUED TO BE UNRESPONSIVE UNTIL BED BATH GIVEN AT 0430. PATIENT A/OX4 AT THAT TIME. PATIENT AWAKE, WATCHING TV, VOICES NO CONCERNS AT THIS TIME. Q2 TURNS COMPLETED. HOURLY ROUNDING IN PLACE FOR PATIENT SAFETY. CLWR.
--- NOTE | 2019-04-30 16:28 | NUR ---
PT A/O. TELE TRACKING SR AND ALL VSS ON ROOM AIR. DENIES CP, SOA. DOES HAVE LEFT SIDED WEAKNESS. EDUCATED ON SAFETY AND PLAN OF CARE. PLEASE SEE ASSESSMENT FOR ADDITIONAL INFORMATION. WILL CONT TO MONITOR
[2019-04-30 17:28] LABS: CALCIUM 8.3 mg/dL (8.5-10.1); POTASSIUM 3.2 mmol/L (3.5-5.1)
[2019-04-30 23:26] LABS: CALCIUM 8.4 mg/dL (8.5-10.1); POTASSIUM 3.5 mmol/L (3.5-5.1)
[2019-05-01 04:00] VITALS: BP 143/77
[2019-05-01 05:19] LABS: CALCIUM 8.7 mg/dL (8.5-10.1); CREATININE 0.8 mg/dL (0.6-1.3); POTASSIUM 3.7 mmol/L (3.5-5.1)
--- NOTE | 2019-05-01 08:11 | NUR ---
ASSUMED PATIENT CARE AT 1900. ASSESSMENT COMPLETED CHARTED. VSS. PATIENT IS SR WITH 1D ON MONITOR. HOURLY ROUNDING IN PLACE FOR PATIENT SAFETY. CLWR.
[2019-05-01 08:30] VITALS: BP 137/79
[2019-05-01 10:01] LABS: HEMATOCRIT 33.5 % (42.0-52.0); HEMOGLOBIN 12.2 gm/dL (14.0-18.0); MCH 32.1 pg (26.0-34.0); MCHC 36.3 g/dL (28.0-37.0); MCV 88.4 fL (80.0-100.0); MPV 9.3 fl. (7.2-11.1); NUCLEATED RBCS 0 /100WBC; PLATELET COUNT* 85 thou/uL (150-400); RBC 3.79 mil/uL (4.50-6.00); RDW-CV 13.9 % (10.5-14.5)
[2019-05-01 10:17] LABS: ALBUMIN 3.4 g/dL (3.4-5.0); CALCIUM 8.4 mg/dL (8.5-10.1); CREATININE 0.8 mg/dL (0.6-1.3); DIRECT BILIRUBIN 0.2 mg/dL (<0.1-0.3); POTASSIUM 3.6 mmol/L (3.5-5.1); TOTAL BILIRUBIN 0.5 mg/dL (<0.1-1.0); TOTAL PROTEIN 6.5 g/dL (6.4-8.2)
[2019-05-01 10:52] LABS: ABSOLUTE LYMPHOCYTES 0.4 thou/uL (0.8-5.3); ABSOLUTE MONOCYTES 0.4 thou/uL (0.0-1.2); ABSOLUTE NEUTROPHILS 6.3 thou/uL (1.6-8.1); ATYPICAL LYMPHS 2 %; PLATELET ESTIMATE DECREASED
[2019-05-01 10:53] LABS: TOXIC GRANULATION 2+
[2019-05-01 11:22] LABS: CALCIUM 8.5 mg/dL (8.5-10.1); CREATININE 0.9 mg/dL (0.6-1.3); POTASSIUM 3.3 mmol/L (3.5-5.1)
[2019-05-01 12:00] VITALS: BP 136/68
[2019-05-01 16:00] VITALS: BP 136/71
[2019-05-01 17:40] LABS: CALCIUM 8.8 mg/dL (8.5-10.1); CREATININE 1.1 mg/dL (0.6-1.3); POTASSIUM 3.2 mmol/L (3.5-5.1)
--- NOTE | 2019-05-01 17:42 | NUR ---
I ASSUMED CARE OF THE PATIENT AT 0700. HE IS ALERT AND ORIENTED X4 AND IS A Q2 TURN. THE IS UP WITH A WALKER X1. BED IS IN THE LOW LOCKED POSITION AND CALL LIGHT IS IN REACH. HOURLY ROUNDING IS COMPLETED AND PATIENT NEEDS ARE MET. HE IS SLOW TO RESPOND, BUT RESPONDS APPROPRIATELY. MRI IS SCHEDULED FOR 05/02. WILL CONTINUE TO MONITOR.
[2019-05-01 20:00] VITALS: BP 148/73
[2019-05-01 23:25] LABS: CALCIUM 8.8 mg/dL (8.5-10.1); CREATININE 1.2 mg/dL (0.6-1.3); POTASSIUM 3.8 mmol/L (3.5-5.1)
[2019-05-02] VITALS: BP 169/83
[2019-05-02 04:00] VITALS: BP 168/81
--- NOTE | 2019-05-02 05:10 | NUR ---
ASSUMED PATIENT CARE AT 1900. ASSESSMENT COMPLETED CHARTED. VSS. PATIENT IS NSR ON THE MONITOR. HOURLY ROUNDING IN PLACE FOR PATIENT SAFETY. CLWR.
[2019-05-02 05:23] LABS: CALCIUM 8.6 mg/dL (8.5-10.1); POTASSIUM 4.3 mmol/L (3.5-5.1)
[2019-05-02 08:00] VITALS: BP 139/82
[2019-05-02 11:13] LABS: CALCIUM 8.6 mg/dL (8.5-10.1); POTASSIUM 4.4 mmol/L (3.5-5.1)
[2019-05-02 11:58] VITALS: BP 169/95
--- NOTE | 2019-05-02 13:50 | NUR ---
MET WITH PT AND HIS MOTHER/GIOVANNA TO DISCUSS HOME SITUATION/DC PLANNING. PT WAS ABLE TO ANSWER QUESTIONS BUT MENTATION IS SLOW. FLAT AFFECT. PT LIVES ALONE ON HIS 'S FAMILY PROPERTY. PER MOM, HE PAYS TO LIVE THERE. PT HAS LIMITED RESOURCES. MOM AND FRIENDS PROVIDE SOME SUPPORT, GET GROCERIES, TAKE TO APPT. PT HAS 2 ADULT SONS, UNABLE TO STATE WHAT KIND OF SUPPORT THEY PROVIDE BUT DID SAY HE SPOKE TO THEM. PT GOES TO [place] IN [place] FOR HEALTHCARE. HE HAS BEEN IN [facility] X3 PER MOM FOR REHAB. THEY ARE INTERESTED IN HIM GOING THERE AGAIN. SPOKE WITH MEKHI/AUDREY. SHE STATED THEY WOULD CONSIDER PT AGAIN BUT THAT HE HAD USED ALL OF HIS MEDICARE SNF DAYS AND HASN'T HAD A 60DAY BREAK. WAS DC'D FROM THERE ON MAR 11. PT ADMITS THAT HE IS STRUGGLING AT HOME, DRINKING MORE AND NOT ABLE TO CARE FOR SELF. SPOKE WITH MOM BY PHONE THIS AFTERNOON TO EXPLAIN OUT OF SNF DAYS. SHE STATED PT HAS ONLY SS INCOME OF AROUND $800/MONTH AND NO ASSETS. SHE IS ENCOURAGING HIM TO CONSIDER PLACEMENT LTC. PT STATES HE NEEDS TO THINK ABOUT IT. WILL NEED TO APPLY FOR MEDICAID, HAVE ASKED [facility] TO MEET WITH PT TO DISCUSS. REFERRAL FAXED TO [facility]. WILL FOLLOW
[2019-05-02 15:10] LABS: CORTISOL AM 12.9 ug/dL (6.2-19.4)
--- NOTE | 2019-05-02 15:18 | 2DMMODE ---
[place] [address] 2 D/M-MODE ECHOCARDIOGRAM Name: BAILEY RAZA Room: [address] IN .R.#: [id number] Admission: 04/29/19 Attend Phys: Jonnie Lazo Discharge: Date of : 62 Date of Service: 05/02/19 1517 Report #: [id number] THIS REPORT FOR: //name// APPROVED REPORT Study performed: 05/02/2019 14:22:39 EXAM: Comprehensive 2D, Doppler, and color-flow Echocardiogram Patient Location: Out-Patient BSA: 1.69 HR: 108 bpm BP: 142/72 mmHg Other Information Study Quality: Good Indications Dyspnea 2D Dimensions IVSd: 10.68 (7-11mm) LVOT Diam: 20.73 (18-24mm) LVDd: 41.41 mm PWd: 8.75 (7-11mm) Ascending Ao: 24.71 (22-36mm) LVDs: 19.49 (25-40mm) Aortic Root: 23.57 mm Volumes Left Atrial Volume (Systole) LA ESV Index: 12.70 mL/m2 Aortic Valve AoV Peak Gallito.: 1.41 m/s AO Peak Gr.: 7.97 mmHg LVOT Max P.78 mmHg AO Mean Gr.: 4.96 mmHg LVOT Mean P.55 mmHg LVOT Max V: 1.48 m/s AO V2 VTI: 21.71 cm LVOT Mean V: 0.99 m/s SINDY (VTI): 3.91 cm2 LVOT V1 VTI: 25.11 cm Mitral Valve E/A Ratio: 0.71 MV Decel. Time: 157.47 ms MV E Max Gallito.: 0.69 m/s MV PHT: 45.67 ms MVA (PHT): 4.82 [place]2 [place] [address] 2 D/M-MODE ECHOCARDIOGRAM Name: BAILEY RAZA Room: [address] IN .R.#: [id number] Admission: 04/29/19 Attend Phys: Jonnie Lazo Discharge: Date of : 62 Date of Service: 05/02/19 1517 Report #: [id number] TDI E/Lateral E': 5.31 E/Medial E': 6.90 Medial E' Gallito.: 0.10 m/s Lateral E' Gallito.: 0.13 m/s Pulmonary Valve PV Peak Galilto.: 1.30 m/s PV Peak Gr.: 6.76 mmHg Left Ventricle The left ventricle is normal size. There is normal LV segmental wall motion. There is normal left ventricular wall thickness. Left ventricular systolic function is hyperdynamic. LVEF is >70%. Grade I - abnormal relaxation pattern. Right Ventricle The right ventricle is normal size. The right ventricular systolic function is normal. Atria The left atrium size is normal. The right atrium size is normal. Aortic Valve The aortic valve is normal in structure. No aortic regurgitation is present. There is no aortic valvular stenosis. Mitral Valve The mitral valve is normal in structure. There is no mitral valve regurgitation noted. No evidence of mitral valve stenosis. Tricuspid Valve The tricuspid valve is normal in structure. There is no tricuspid valve regurgitation noted. Pulmonic Valve The pulmonary valve is normal in structure. There is no pulmonic valvular regurgitation. Great Vessels The aortic root is normal in size. IVC is normal in size and collapses >50% with inspiration. Pericardium There is no [place] [address] 2 D/M-MODE ECHOCARDIOGRAM Name: BAILEY RAZA Room: [address] IN [facility]#: [id number] Admission: 04/29/19 Attend Phys: Jonnie Lazo Discharge: Date of : 62 Date of Service: 05/02/19 1517 Report #: [id number] <Conclusion> The left ventricle is normal size. There is normal left ventricular wall thickness. Left ventricular systolic function is hyperdynamic. LVEF is >70%. Grade I - abnormal relaxation pattern. The right ventricle is normal size. The left atrium size is normal. The aortic valve is normal in structure. The mitral valve is normal in structure. The tricuspid valve is normal in structure. IVC is normal in size and collapses >50% with inspiration. There is no pericardial effusion. There is normal LV segmental wall motion. <ELECTRONICALLY SIGNED> By: Jorge Holden MD, [facility] 05/02/19 151 16 16 Jorge Holden MD, FACC /INF
[2019-05-02 15:59] VITALS: BP 161/88
--- NOTE | 2019-05-02 16:59 | EKG ---
[place] [address] ELECTROCARDIOGRAM REPORT Name: BAILEY RAZA Room: [address] ADM IN .R.#: [id number] Admission: 04/29/19 Attend Phys: Katerin Sandoval Discharge: Date of : 62 Report #: [id number] THIS REPORT FOR: //name// [facility] ED Test Date: 2019-04-29 Test Time: 17:29:32 Pat Name: BAILEY RAZA Department: Room: [facility] Gender: Wheel Truer: : 1960 Requested By: Shay Daniels Order Number: [id number] MD: Rodolfo Guzman Measurements Intervals [place] Rate: 79 P: 83 ID: [id number] QRS: 58 QRSD: 83 T: 66 QT: 395 QTc: 453 Interpretive Statements Sinus rhythm Probable anteroseptal infarct, old Compared to ECG 03/27/2018 19:48:02 Myocardial infarct finding now present Electronically Signed On 05-02-2019 16:59:45 FORGE OPERATOR HELPER by Rodolfo Guzman [email or web address] <ELECTRONICALLY SIGNED> By: Rodolfo Guzman MD, FACMaxine 05/02/19 1659 1729 1729 Rodolfo Guzman MD, [facility] /EPI
[2019-05-02 17:35] LABS: CALCIUM 8.8 mg/dL (8.5-10.1); CREATININE 1.2 mg/dL (0.6-1.3)
--- NOTE | 2019-05-02 19:09 | NUR ---
ASSUMED PT CARE AT 0700, PT A&O X4, LEFT SIDED HEMIPARESIS, ASSIST X2 FOR TRANSFERS, RA, RECRUITING SPECIALIST TRACING SINUS RHYTHM/SINUS TACH, FULL ASSESSMENT CHARTED. PT HAD MRI OF HEAD THIS SHIFT, RESULTS IN CHART. HOURLY ROUNDING COMPLETED.
[2019-05-02 19:45] VITALS: BP 156/85
[2019-05-03] VITALS: BP 185/101
[2019-05-03 00:54] LABS: CALCIUM 8.8 mg/dL (8.5-10.1); CREATININE 1.3 mg/dL (0.6-1.3); POTASSIUM 4.2 mmol/L (3.5-5.1)
[2019-05-03 02:10] LABS: CORTISOL PM 11.7 ug/dL (2.3-11.9)
[2019-05-03 04:00] VITALS: BP 192/110
[2019-05-03 05:05] LABS: CALCIUM 8.6 mg/dL (8.5-10.1); CREATININE 1.2 mg/dL (0.6-1.3)
[2019-05-03 06:52] VITALS: BP 189/92
--- NOTE | 2019-05-03 06:54 | NUR ---
ASSESSMENT DOCUMENTED. MEDS GIVEN PER E-MAR. IV PATENT, FLUIDS INFUISNG. NO REPORTS OF PAIN THIS SHIFT. DR NOTIFIED OF PTS ELEVATED BP. ORDERS RECIEVED. WILL CONTINUE WITH PLAN OF CARE.
[2019-05-03 11:23] LABS: CREATININE 1.1 mg/dL (0.6-1.3); POTASSIUM 4.2 mmol/L (3.5-5.1)
--- NOTE | 2019-05-03 11:31 | NUR ---
CONTINUE TO FOLLOW, ORDERS NOTED FOR DC TO SNF. MET WITH PT AND MOM, IN AGREEMENT AND WANT AUDREY YUSUF. CALL TO MEKHI, THEN SPOKE WITH KORINA/AUDREY. THEY WANT TO KNOW MEDICAID MAGGIE STATUS PRIOR TO MAKING DECISION. ALFONSO FROM [facility] HERE TO EVAL PT FOR MEDICAID MAGGIE.
[2019-05-03 11:32] VITALS: BP 171/98
[2019-05-03 15:53] VITALS: BP 191/98
[2019-05-03 17:38] LABS: CALCIUM 9.1 mg/dL (8.5-10.1); CREATININE 1.4 mg/dL (0.6-1.3); POTASSIUM 3.7 mmol/L (3.5-5.1)
--- NOTE | 2019-05-03 18:30 | NUR ---
ASSUMED PT CARE AT 0700, VSS, REMAINS ON RA, TOOL DESIGN DRAFTER TRACING SINUS RHYTHM/SINUS TACH, FULL ASSESSMENT CHARTED. POSSIBLE DISCHARGE TOMORROW ONCE PLACEMENT IS FOUND. HOURLY ROUNDING COMPLETED.
[2019-05-03 19:45] VITALS: BP 163/81
[2019-05-04] VITALS: BP 154/82
[2019-05-04 00:04] LABS: CALCIUM 8.4 mg/dL (8.5-10.1); CREATININE 1.1 mg/dL (0.6-1.3); POTASSIUM 3.9 mmol/L (3.5-5.1)
[2019-05-04 04:00] VITALS: BP 146/85
[2019-05-04 04:53] LABS: CALCIUM 8.9 mg/dL (8.5-10.1); POTASSIUM 3.8 mmol/L (3.5-5.1)
--- NOTE | 2019-05-04 05:50 | NUR ---
PT SLEPT ON AND OFF THIS SHIFT. ASSESSMENT DOCUMENTED. MEDS GIVEN PER E-AUG. NO REPORTS OF PAIN. PT INCONTINENT THIS SHIFT. PT FOUND WITH IV PULLED OUT IN BED. NEW IV STARTED. PT SNACKING ON COOKIES AND COFFEE THIS SHIFT. WILL CONTINUE WITH PLAN OF CARE.
--- NOTE | 2019-05-04 07:10 | NUR ---
CHANGE OF SHIFT BEDSIDE REPORT GIVEN PATIENT SEEN AT BEDSIDE, IN BED ASLEEP ASSUMED PATIENT CARE
[2019-05-04 08:00] VITALS: BP 159/94
--- NOTE | 2019-05-04 11:17 | NUR ---
SPOKE WITH FOX YUSUF. SHE IS COMING OUT TO DO AN ONSITE VISIT WITH PT TO DISCUSS FINANCES. WILL FOLLOW AND AWAIT THEIR DECISION
[2019-05-04 11:34] LABS: CALCIUM 8.7 mg/dL (8.5-10.1); CREATININE 1.2 mg/dL (0.6-1.3); POTASSIUM 3.9 mmol/L (3.5-5.1)
[2019-05-04 12:00] VITALS: BP 149/85
[2019-05-04 15:50] VITALS: BP 136/76
[2019-05-04 17:51] LABS: CALCIUM 8.8 mg/dL (8.5-10.1); CREATININE 1.4 mg/dL (0.6-1.3)
[2019-05-04 20:00] VITALS: BP 157/93
[2019-05-04 23:22] LABS: CALCIUM 8.7 mg/dL (8.5-10.1); CREATININE 1.3 mg/dL (0.6-1.3); POTASSIUM 3.8 mmol/L (3.5-5.1)
[2019-05-05] VITALS: BP 177/101
[2019-05-05 04:00] VITALS: BP 150/85
[2019-05-05 04:16] LABS: CALCIUM 8.5 mg/dL (8.5-10.1); CREATININE 1.1 mg/dL (0.6-1.3)
--- NOTE | 2019-05-05 05:50 | NUR ---
ASSUMED PATIENT CARE AT 1900. ASSESSMENT COMLPETED CHARTED. VSS. PATIENT IS NSR WITH A 1D BLOCK ON THE MONITOR. HOURLY ROUNDING IN PLACE FOR PATIENT SAFETY. CLWR.
--- NOTE | 2019-05-05 06:57 | NUR ---
I HAVE REVIEWED WITH THE CHARTING OF JANNA NATION. I CONCUR WITH HIS DOCUMENTATION.
[2019-05-05 07:33] VITALS: BP 127/67
[2019-05-05 11:10] VITALS: BP 147/76
--- NOTE | 2019-05-05 12:18 | NUR ---
IV DISCONTINUED. PT UNDERSTANDS ALL DISCHARGE ORDERS. WILL DISCHARGE TO HOME.
[2019-05-05 13:27] LABS: CALCIUM 8.9 mg/dL (8.5-10.1); CREATININE 1.2 mg/dL (0.6-1.3)
--- NOTE | 2019-05-05 13:34 | NUR ---
HEARD BACK FROM [facility]. THEY ARE ABLE TO ACCEPT PT AT [facility]. WILL DISCUSS WITH
--- NOTE | 2019-05-05 14:20 | NUR ---
cm spoke w/jose from [facility] [place]. pt has been apporved to tranfer to the facility today. jose will set up transportaion to include w/c and O2, transportation is schueduled for 4p. cm faxed orders to [phone]. pt nurse notified of number to call report @ [phone] and to ask to speak to the nurse for [place]. pt's mother notified. pt's mother is present visiting pt. US notified.
[2019-05-05] MEDS ORDERED: VITAMIN B-1100 M1 PO (14:32)
[2019-05-05] MEDS ORDERED: FOLIC ACID1 MG PO (14:32)
[2019-05-05] MEDS ORDERED: LASIX 40 MG TAB40 M2 PO (14:32)
[2019-05-05] MEDS ORDERED: NYSTATIN 100,0015 G1 TOP (14:34)
[2019-05-05] MEDS ORDERED: POTASSIUM20 PO (14:45)
--- NOTE | 2019-05-05 14:56 | NUR ---
REPORT CALLED TO JULI[facility]N [facility] AT [facility].
[2019-05-06 16:08] LABS: GLOBULIN TOTAL 2.7 g/dL (2.2-3.9); M-SPIKE Not Observed g/dL (Not Observed)
== END 2019-05-05 16:50 | DRG 291 ==
LOC: M.ERS 17:00 → M.TBA-ER 17:49 → M.2W 17:49
PROVIDERS: Family Medicine; Nurse Practitioner; Psychiatry & Neurology Neurology; ADMIT Internal Medicine
DX: I11.0 Hypertensive heart disease with heart failure (principal); J12.9 Viral pneumonia, unspecified; G93.41 Metabolic encephalopathy; I62.03 Nontraumatic chronic subdural hemorrhage; E87.1 Hypo-osmolality and hyponatremia; J44.1 Chronic obstructive pulmonary disease with (acute) exacerbation; J44.0 Chronic obstructive pulmonary disease with (acute) lower respiratory infection; I50.33 Acute on chronic diastolic (congestive) heart failure; E78.00 Pure hypercholesterolemia, unspecified; K21.9 Gastro-esophageal reflux disease without esophagitis; E87.70 Fluid overload, unspecified; F17.201 Nicotine dependence, unspecified, in remission; E83.42 Hypomagnesemia; E87.8 Other disorders of electrolyte and fluid balance, not elsewhere classified; G62.9 Polyneuropathy, unspecified; F10.10 Alcohol abuse, uncomplicated; Z79.82 Long term (current) use of aspirin; Z86.73 Personal history of transient ischemic attack (TIA), and cerebral infarction without residual deficits; Z88.8 Allergy status to other drugs, medicaments and biological substances; Z82.49 Family history of ischemic heart disease and other diseases of the circulatory system; Z79.899 Other long term (current) drug therapy; Z28.21 Immunization not carried out because of patient refusal; W18.39XA Other fall on same level, initial encounter; Y93.89 Activity, other specified; Y92.89 Other specified places as the place of occurrence of the external cause; Y99.8 Other external cause status